=== PATIENT | male | born 1960 | race Caucasian/White ===

== ENCOUNTER 2019-07-18 10:14 | Emergency (ER) | payer MEDICAID ==
[~2019-07-18] VITALS: Ht 170.2 cm; Wt 85.0 kg
[~2019-07-18 10:14] MED LIST: NO HOME MEDS
[2019-07-18 11:05] LABS: BASOPHILS # (AUTO) 0.1 X10'3 (0-0.2); BASOPHILS % (AUTO) 0.7 % (0-1); EOSINOPHILS # (AUTO) 0.1 X10'3 (0-0.9); EOSINOPHILS % (AUTO) 1.1 % (0-6); HEMATOCRIT 54.4 % (42.0-52.0); LYMPHOCYTES # (AUTO) 1.1 X10'3 (1.1-4.8); LYMPHOCYTES % (AUTO) 9.3 % (21-51); MEAN CORPUSCULAR HEMOGLOBIN 32.9 PG (27.0-31.0); MEAN CORPUSCULAR HGB CONC 34.2 g/dL (33.0-36.5); MEAN CORPUSCULAR VOLUME 96.1 FL (78-98); MEAN PLATELET VOLUME 8.6 FL (7.4-10.4); MONOCYTES % (AUTO) 8.1 % (2-12); NEUTROPHILS # (AUTO) 9.6 X10'3 (1.8-7.7); NEUTROPHILS % (AUTO) 80.8 % (42-75); PLATELET COUNT 272 X10'3 (140-440); RED BLOOD COUNT 5.66 X10'6 (4.70-6.10); RED CELL DISTRIBUTION WIDTH 13.3 % (11.5-14.5); WHITE BLOOD COUNT 11.9 X10'3 (4.5-11.0)
[2019-07-18 11:09] LABS: HEMOGLOBIN 18.6 g/dl (14.0-17.9)
[2019-07-18 11:20] LABS: ALANINE AMINOTRANSFERASE 29 U/L (12-78); ALBUMIN 4.1 G/DL (3.4-5.0); ALBUMIN/GLOBULIN RATIO 0.9 (1.1-1.5); ALKALINE PHOSPHATASE 102 IU/L (46-116); ANION GAP 8 (8-16); ASPARTATE AMINO TRANSFERASE 20 U/L (10-37); BILIRUBIN,TOTAL 0.7 MG/DL (0.1-1.0); BLOOD UREA NITROGEN 10 MG/DL (7-18); BUN/CREATININE RATIO 8.3 (5.4-32.0); CALCIUM 9.7 MG/DL (8.5-10.1); CHLORIDE 101 MMOL/L (99-107); GLUCOSE 106 MG/DL (70-104); POTASSIUM 4.4 MMOL/L (3.5-5.1); SODIUM 136 MMOL/L (135-145); TOTAL PROTEIN 8.5 G/DL (6.4-8.2); eGFR 62 ML/MIN
[2019-07-18] MEDS ORDERED: ondansetron/PF 4mg/2ml inj IV ONE (11:25)
[2019-07-18] MEDS ORDERED: morphine 4 MG/ML inj SYRINge IV ONE (11:25)
[2019-07-18] MEDS ORDERED: iohexol 300mg/ml 100ml inj. ONE (12:16)
[2019-07-18 12:32] LABS: CLARITY,URINE CLEAR (Clear); COLOR,URINE YELLOW (Yellow); GLUCOSE, URINE NEGATIVE (Neg); KETONES,URINE NEGATIVE (Neg); LEUKOCYTE ESTERASE ,URINE NEGATIVE (Neg); NITRITES, URINE NEGATIVE (Neg); OCCULT BLOOD,URINE NEGATIVE (Neg); PROTEIN,URINE NEGATIVE (Neg); UROBILINOGEN,URINE 0.2 E.U/dL (0.2-1.0)
[2019-07-18 12:39] LABS: UA COLLECTION TYPE URINAL
--- NOTE | 2019-07-18 12:42 | NUR ---
PT BACK FROM CT. AT BEDSIDE.
[2019-07-18] MEDS ORDERED: fentaNYL/PF 50MCG/1 ML 2ML syringe IV ONE (13:40)
--- NOTE | 2019-07-18 13:50 | NUR ---
DR. GAMING AT BEDSIDE.
--- NOTE | 2019-07-18 13:53 | NUR ---
Fentanyl 100mcg given IV per MD for pain management for hernia reduction. MD in room with patient at this time perfoming intervention.
--- NOTE | 2019-07-18 13:59 | NUR ---
Pt. reports decrease of pain level after procedure carried out by . MD to return at bedside after patient rests for a few minutes.
[2019-07-18 14:57] VITALS: BP 149/109
[2019-07-19] MEDS ORDERED: ALBU8.5H8 INH (20:29)
[2019-07-19] MEDS ORDERED: IBUP-2697 PO (20:29)
== END 2019-07-18 15:05 | disposition home or self-care (01) ==
LOC: ER 10:15
DX: K40.90 Unilateral inguinal hernia, without obstruction or gangrene, not specified as recurrent (principal); J45.909 Unspecified asthma, uncomplicated; F15.90 Other stimulant use, unspecified, uncomplicated; Z60.2 Problems related to living alone
CPT/HCPCS: 36415; 74177; 80053; 81003; 85025; 85610; 96374; 96375; 99284; J2270; J2405; J3010; Q9967

== ENCOUNTER 2019-07-19 09:33 | Observation (INO) | payer MEDICAID ==
[~2019-07-19] VITALS: Ht 170.2 cm; Wt 0.8 kg
[2019-07-19] VITALS (13 sets, daily range): BP systolic 132–176; BP diastolic 80–109
[2019-07-19] MEDS ORDERED: ondansetron/PF 4mg/2ml inj IV ONE ×2 (11:30→15:25)
[2019-07-19] MEDS ORDERED: morphine 4 MG/ML inj SYRINge IV PRN ×3 (11:30→17:45)
[2019-07-19] MEDS ORDERED: normal saline 1000ML IV soln IVB ONE (11:30)
[2019-07-19 12:20] LABS: CLARITY,URINE CLEAR (Clear); COLOR,URINE YELLOW (Yellow); GLUCOSE, URINE NEGATIVE (Neg); KETONES,URINE TRACE mg/dl (Neg); LEUKOCYTE ESTERASE ,URINE NEGATIVE (Neg); NITRITES, URINE NEGATIVE (Neg); OCCULT BLOOD,URINE NEGATIVE (Neg); PROTEIN,URINE NEGATIVE (Neg); UROBILINOGEN,URINE 0.2 E.U/dL (0.2-1.0)
[2019-07-19 12:22] LABS: BASOPHILS # (AUTO) 0.1 X10'3 (0-0.2); BASOPHILS % (AUTO) 0.6 % (0-1); EOSINOPHILS # (AUTO) 0.2 X10'3 (0-0.9); EOSINOPHILS % (AUTO) 1.4 % (0-6); HEMATOCRIT 53.6 % (42.0-52.0); LYMPHOCYTES # (AUTO) 0.9 X10'3 (1.1-4.8); LYMPHOCYTES % (AUTO) 6.6 % (21-51); MEAN CORPUSCULAR HEMOGLOBIN 33.2 PG (27.0-31.0); MEAN CORPUSCULAR HGB CONC 34.4 g/dL (33.0-36.5); MEAN CORPUSCULAR VOLUME 96.5 FL (78-98); MONOCYTES # (AUTO) 1.1 X10'3 (0-0.9); MONOCYTES % (AUTO) 7.5 % (2-12); NEUTROPHILS # (AUTO) 11.8 X10'3 (1.8-7.7); NEUTROPHILS % (AUTO) 83.9 % (42-75); PLATELET COUNT 245 X10'3 (140-440); RED BLOOD COUNT 5.55 X10'6 (4.70-6.10); RED CELL DISTRIBUTION WIDTH 13.2 % (11.5-14.5); WHITE BLOOD COUNT 14.1 X10'3 (4.5-11.0)
[2019-07-19 12:22] LABS: UA COLLECTION TYPE CLN CATCH MIDSTREAM
[2019-07-19 12:25] LABS: HEMOGLOBIN 18.4 g/dl (14.0-17.9)
[2019-07-19 12:34] LABS: ALANINE AMINOTRANSFERASE 28 U/L (12-78); ALBUMIN 3.7 G/DL (3.4-5.0); ALBUMIN/GLOBULIN RATIO 0.9 (1.1-1.5); ALKALINE PHOSPHATASE 96 IU/L (46-116); ANION GAP 5 (8-16); ASPARTATE AMINO TRANSFERASE 17 U/L (10-37); BILIRUBIN,TOTAL 0.6 MG/DL (0.1-1.0); BLOOD UREA NITROGEN 10 MG/DL (7-18); BUN/CREATININE RATIO 10.8 (5.4-32.0); CALCIUM 9.1 MG/DL (8.5-10.1); CHLORIDE 101 MMOL/L (99-107); CREATININE 0.93 MG/DL (0.60-1.10); GLUCOSE 99 MG/DL (70-104); LIPASE 167 U/L (73-393); POTASSIUM 4.6 MMOL/L (3.5-5.1); SODIUM 137 MMOL/L (135-145); TOTAL CARBON DIOXIDE 30.7 MMOL/L (24-32); eGFR 83 ML/MIN
[2019-07-19] MEDS ORDERED: morphine 4 MG/ML inj SYRINge IV ONE (15:25)
[2019-07-19] MEDS ORDERED: ceFAZolin 1000mg inj ONE (16:44)
[2019-07-19] MEDS ORDERED: BUPIVAcaine/PF 2.5 mg/ml (0.25%) 30ml vial ONE (16:45)
[2019-07-19] MEDS ORDERED: midazolam 2 mg/2 ml injection ONE (17:00)
[2019-07-19] MEDS ORDERED: propofol inj 20 ML IV ONE (17:00)
[2019-07-19] MEDS ORDERED: fentaNYL /PF 50mcg/ml 5ml ampule ONE (17:00)
[2019-07-19] MEDS ORDERED: rocuronium 10mg/ml inj IV ONE (17:00)
[2019-07-19] MEDS ORDERED: ringers solution, lacted 1,000 ML IV SCH (17:41)
[2019-07-19] MEDS ORDERED: meperidine/PF 25mg/ml syringe IV PRN ×3 (17:45)
[2019-07-19] MEDS ORDERED: ondansetron/PF 4mg/2ml inj IV PRN (17:45)
[2019-07-19] MEDS ORDERED: proCHLORperazine 10 MG/2 ml inj IV PRN (17:45)
[2019-07-19] MEDS ORDERED: neostigmine methylsulfate 1 MG/ML 10ml vial ONE (17:58)
[2019-07-19] MEDS ORDERED: glycopyrrolate 0.2mg/ml inj ONE (17:58)
[2019-07-19] MEDS ORDERED: sugammadex 200mg/2ml injection IV ONE (18:07)
--- NOTE | 2019-07-19 18:10 | NUR ---
Received from OR via , accompanied by Anesthesiologist DR TAVAREZ and report given by Anesthesiolgist. AWAKENS TO VOICE. VITALS STABLE. DRESSINGS DI. DANA PAIN. ABD SOFT.
[2019-07-19] MEDS ORDERED: HYDROcodone/acetaminophen 10/325mg tab PO PRN ×2 (18:30)
--- NOTE | 2019-07-19 18:50 | NUR ---
Report called to receiving nurse. Transferred via [facility] . Special Issues communicated to receiving nurse. AWAKE AND ORIENTED. VITALS STABLE. DRESSINGS DI.DANA PAIN. TO SURGICAL RM 344A AT THIS TIME.
[2019-07-19] MEDS ORDERED: ALBU8.5H8 INH (20:29)
[2019-07-19] MEDS ORDERED: IBUP-2697 PO (20:29)
[2019-07-19] MEDS: normal saline 1000ml 1,000 ML IV SCH (21:34)
[2019-07-20] VITALS: BP 136/82
[2019-07-20] MEDS: normal saline 1000ml 1,000 ML IV SCH (05:22)
--- NOTE | 2019-07-20 06:18 | NUR ---
Patient in room [facility]. I have received report from Lelo KEE and had the opportunity to ask questions and assume patient care.
--- NOTE | 2019-07-20 06:39 | NUR ---
Problems reprioritized. Patient report given, questions answered & plan of care reviewed with Neto KEE.
[2019-07-20 07:00] VITALS: BP 120/74
[2019-07-20 10:51] VITALS: BP 147/97
--- NOTE | 2019-07-20 12:30 | NUR ---
Discharged patient home, discharge instruction given to patient. Patient verbalized understanding of all instructions made. Peripheral IV catheter removed, tip intact. Patient accompanied by a family member upon discharge
== END 2019-07-20 12:30 | disposition home or self-care (01) ==
LOC: ER 09:33 → SUR 3N 19:13
PROVIDERS: ADMIT Surgery; ATTEND Surgery
DX: K40.30 Unilateral inguinal hernia, with obstruction, without gangrene, not specified as recurrent (principal); J44.9 Chronic obstructive pulmonary disease, unspecified; Z79.899 Other long term (current) drug therapy
CPT/HCPCS: 36415; 49650; 80053; 81003; 83605; 83690; 85025; 87081; 96374; 96375; 96376; 99284; C1727; C1781; C9399; G0378; J0690; J2250; J2270; J2405; J2704; J2710; J3010; J3490; J7030; J7120; A4215; A4314; A4618; A7000

== ENCOUNTER 2021-01-16 12:29 | Emergency (ER) | payer MEDICAID ==
[~2021-01-16] VITALS: Ht 170.2 cm; Wt 79.5 kg
[~2021-01-16 12:29] MED LIST changes: +ALBU8.5H8 INH; +IBUP-2697 PO
[2021-01-16 13:01] LABS: BASOPHILS # (AUTO) 0.1 X10'3 (0-0.2); BASOPHILS % (AUTO) 1.1 % (0-1); EOSINOPHILS # (AUTO) 0.2 X10'3 (0-0.9); EOSINOPHILS % (AUTO) 2.2 % (0-6); HEMATOCRIT 54.9 % (42.0-52.0); LYMPHOCYTES # (AUTO) 1.8 X10'3 (1.1-4.8); LYMPHOCYTES % (AUTO) 17.9 % (21-51); MEAN CORPUSCULAR HEMOGLOBIN 32.8 PG (27.0-31.0); MEAN CORPUSCULAR HGB CONC 33.7 g/dL (33.0-36.5); MEAN CORPUSCULAR VOLUME 97.3 FL (78-98); MEAN PLATELET VOLUME 8.9 FL (7.4-10.4); MONOCYTES % (AUTO) 10.2 % (2-12); NEUTROPHILS # (AUTO) 6.8 X10'3 (1.8-7.7); NEUTROPHILS % (AUTO) 68.6 % (42-75); PLATELET COUNT 232 X10'3 (140-440); RED BLOOD COUNT 5.65 X10'6 (4.70-6.10); RED CELL DISTRIBUTION WIDTH 13.8 % (11.5-14.5); WHITE BLOOD COUNT 9.8 X10'3 (4.5-11.0)
[2021-01-16 13:05] LABS: HEMOGLOBIN 18.5 g/dl (14.0-17.9)
[2021-01-16 13:16] LABS: ALANINE AMINOTRANSFERASE 31 U/L (12-78); ALKALINE PHOSPHATASE 115 IU/L (46-116); ANION GAP 7 (8-16); ASPARTATE AMINO TRANSFERASE 21 U/L (10-37); BILIRUBIN,TOTAL 0.4 MG/DL (0.1-1.0); BLOOD UREA NITROGEN 19 MG/DL (7-18); BUN/CREATININE RATIO 19.2 (5.4-32.0); CALCIUM 9.2 MG/DL (8.5-10.1); CHLORIDE 104 MMOL/L (99-107); CREATININE 0.99 MG/DL (0.60-1.10); GLUCOSE 101 MG/DL (70-104); SODIUM 139 MMOL/L (135-145); TOTAL CARBON DIOXIDE 28.3 MMOL/L (24-32); eGFR 77 ML/MIN
[2021-01-16 13:18] LABS: POTASSIUM 4.5 MMOL/L (3.5-5.1)
[2021-01-16] MEDS ORDERED: ipratropium/albuterol 3ml nebule NEB ONE (13:45)
[2021-01-16] MEDS ORDERED: IPRA3AMP31 IH (14:07)
[2021-01-16 14:17] VITALS: BP 158/122
== END 2021-01-16 14:11 | disposition home or self-care (01) ==
LOC: ER 12:30
DX: J44.9 Chronic obstructive pulmonary disease, unspecified (principal); F15.90 Other stimulant use, unspecified, uncomplicated; Z60.2 Problems related to living alone; Z79.899 Other long term (current) drug therapy
CPT/HCPCS: 36415; 71046; 80053; 83880; 84484; 85025; 93005; 94640; 94760; 99285

== ENCOUNTER 2021-12-21 16:10 | Inpatient (IN) | payer MEDICAID ==
[~2021-12-21] VITALS: Ht 170.2 cm; Wt 95.0 kg
[~2021-12-21 16:10] MED LIST changes: +ALBU8.5H17 INH; -ALBU8.5H8 INH; +IPRA3AMP31 IH
[2021-12-21 17:13] LABS: BASOPHILS # (AUTO) 0.1 X10'3 (0-0.2); BASOPHILS % (AUTO) 0.5 % (0-1); EOSINOPHILS % (AUTO) 0 % (0-6); HEMATOCRIT 56.4 % (42.0-52.0); LYMPHOCYTES # (AUTO) 0.6 X10'3 (1.1-4.8); LYMPHOCYTES % (AUTO) 4.3 % (21-51); MEAN CORPUSCULAR HEMOGLOBIN 31.9 PG (27.0-31.0); MEAN CORPUSCULAR HGB CONC 33.4 g/dL (33.0-36.5); MEAN CORPUSCULAR VOLUME 95.7 FL (78-98); MEAN PLATELET VOLUME 8.9 FL (7.4-10.4); MONOCYTES # (AUTO) 1.3 X10'3 (0-0.9); NEUTROPHILS # (AUTO) 12.5 X10'3 (1.8-7.7); NEUTROPHILS % (AUTO) 86.2 % (42-75); PLATELET COUNT 211 X10'3 (140-440); RED BLOOD COUNT 5.89 X10'6 (4.70-6.10); RED CELL DISTRIBUTION WIDTH 13.1 % (11.5-14.5); WHITE BLOOD COUNT 14.5 X10'3 (4.5-11.0)
[2021-12-21] MEDS ORDERED: methylPREDNISolone sod succ 125mg/2ml vial IV ONE (17:15)
[2021-12-21] MEDS ORDERED: CefTRIAXone/D5W-Rocephin 1gm 50 ML IV ONE (17:15)
[2021-12-21] MEDS ORDERED: ipratropium 0.5 MG/2.5ML nebule IH ONE (17:15)
[2021-12-21] MEDS ORDERED: normal saline 1000ML IV soln IVB ONE (17:15)
[2021-12-21] MEDS ORDERED: albuterol 2.5 MG/3 ML nebule CONTNEB PRN (17:15)
[2021-12-21 17:17] LABS: HEMOGLOBIN 18.8 g/dl (14.0-17.9)
--- NOTE | 2021-12-21 17:17 | NUR ---
CRITICAL VALUE: HGB 18.8, HCT 56.4. NOTIFIED
[2021-12-21] MEDS ORDERED: cefTRIAXone 1g/NS 100ml IVPB 100 ML IV ONE ×2 (17:19→17:20)
[2021-12-21 17:24] LABS: ALANINE AMINOTRANSFERASE 33 U/L (12-78); ALBUMIN/GLOBULIN RATIO 0.9 (1.1-1.5); ALKALINE PHOSPHATASE 92 IU/L (46-116); ANION GAP 10 (8-16); ASPARTATE AMINO TRANSFERASE 29 U/L (10-37); BILIRUBIN,TOTAL 0.4 MG/DL (0.1-1.0); BLOOD UREA NITROGEN 16 MG/DL (7-18); BUN/CREATININE RATIO 14.7 (5.4-32.0); CALCIUM 9.3 MG/DL (8.5-10.1); CHLORIDE 98 MMOL/L (99-107); CREATININE 1.09 MG/DL (0.60-1.10); GLUCOSE 111 MG/DL (70-104); POTASSIUM 4.5 MMOL/L (3.5-5.1); SODIUM 135 MMOL/L (135-145); TOTAL CARBON DIOXIDE 27.4 MMOL/L (24-32); TOTAL PROTEIN 8.5 G/DL (6.4-8.2); eGFR 69 ML/MIN
[2021-12-21 17:29] LABS: LIPASE 58 U/L (73-393)
[2021-12-21 17:48] LABS: ABG BASE EXCESS 0.7 mmol/L (-2.0-2.0); ABG HCO3 27.1 mmol/L (22.0-26.0); ABG OXYGEN SATURATION 95.3 % (94-97); ABG PCO2 (T) 49.4 mmHg (35.0-48.0); ABG PO2 (T) 76.8 mmHg (75.0-100.0); ALLEN'S TEST POSITIVE; FCOHb 1.1 % (0.0-3.9); FLOW 8 L/min; FMetHb 0.2 % (0.0-1.5); FO2Hb 94.1 % (94-97); PATIENT TEMPERATURE 36.9; TOTAL HEMOGLOBIN 17.5 G/dl (14.0-18.0)
--- NOTE | 2021-12-21 18:55 | NUR ---
RT IN ROOM. PT ON 3L OF O2 NC. PT NORMALLY SATS IN THE HIGH 80S. HE USUALLY USES 2L OF O2 NC DURING THE DAY AND 4L OF 02 DURING THE NIGHT
[2021-12-21] MEDS ORDERED: morphine 2 MG/ML inj. syringe IV PRN ×2 (19:55)
[2021-12-21] MEDS ORDERED: diphenhydrAMINE 25mg capsule PO PRN (19:55)
[2021-12-21] MEDS ORDERED: HYDROcodone/acetaminophen 5mg/325mg tablet PO PRN (19:55)
[2021-12-21] MEDS ORDERED: ondansetron 4mg rapidly disintigrating tab PO PRN (19:55)
[2021-12-21] MEDS ORDERED: diphenhydrAMINE 50 mg/ml inj IV PRN (19:55)
[2021-12-21] MEDS ORDERED: ondansetron/PF 4mg/2ml inj IV PRN (19:55)
[2021-12-21] MEDS ORDERED: mag hydrox/Alum hydrox/simeth 30ml oral suspension PO PRN (19:55)
[2021-12-21] MEDS ORDERED: acetaminophen 650mg rectal suppository RC PRN (19:55)
[2021-12-21] MEDS ORDERED: magnesium hydroxide 30ml (MOM) UD suspension PO PRN (19:55)
[2021-12-21] MEDS ORDERED: bisacodyl 10mg suppository rectal RC PRN (19:55)
[2021-12-21] MEDS ORDERED: acetaminophen 325mg tablet PO PRN ×2 (19:55)
[2021-12-21] MEDS ORDERED: HYDROcodone/acetaminophen 10/325mg tab PO PRN (19:55)
[2021-12-21] MEDS: docusate sod 100mg capsule PO SCH (20:00)
[2021-12-21 20:23] LABS: APTT 36 SECONDS (22-32)
[2021-12-21] MEDS ORDERED: FLUT1BLS16 INH (20:30)
[2021-12-21] MEDS ORDERED: ALBU8HFA IH (20:30)
[2021-12-21] MEDS ORDERED: BUPR-72 PO (20:30)
[2021-12-21] MEDS ORDERED: MONT-40 PO (20:30)
[2021-12-21] MEDS ORDERED: LISI1TAB51 PO (20:30)
[2021-12-21] MEDS ORDERED: VARE1TAB24 PO (20:30)
[2021-12-21] MEDS ORDERED: PRED20TA PO (20:30)
[2021-12-21 20:40] LABS: CREATINE KINASE 99 U/L (39-308); MAGNESIUM 2.2 MG/DL (1.5-2.4)
[2021-12-21 20:49] LABS: HEMOGLOBIN A1C 6.4 % (4.5-6.2)
[2021-12-21] MEDS: normal saline 1000ml 1,000 ML IV SCH ×2 (20:53→23:15)
[2021-12-21] MEDS ORDERED: temazepam 15mg capsule PO PRN (21:00)
[2021-12-21 21:35] VITALS: BP 116/71
[2021-12-21 22:00] VITALS: BP 140/70
[2021-12-21] MEDS: furosemide 20 MG/2 ML vial IV SCH (23:13)
[2021-12-22 02:00] VITALS: BP 142/94
[2021-12-22 05:46] LABS: BASOPHILS % (AUTO) 0.1 % (0-1); EOSINOPHILS % (AUTO) 0.1 % (0-6); HEMATOCRIT 49.8 % (42.0-52.0); HEMOGLOBIN 16.5 g/dl (14.0-17.9); LYMPHOCYTES # (AUTO) 0.4 X10'3 (1.1-4.8); LYMPHOCYTES % (AUTO) 3.2 % (21-51); MEAN CORPUSCULAR HEMOGLOBIN 31.7 PG (27.0-31.0); MEAN CORPUSCULAR HGB CONC 33.1 g/dL (33.0-36.5); MEAN CORPUSCULAR VOLUME 95.8 FL (78-98); MEAN PLATELET VOLUME 8.8 FL (7.4-10.4); MONOCYTES # (AUTO) 0.4 X10'3 (0-0.9); MONOCYTES % (AUTO) 2.9 % (2-12); NEUTROPHILS # (AUTO) 11.8 X10'3 (1.8-7.7); NEUTROPHILS % (AUTO) 93.7 % (42-75); PLATELET COUNT 178 X10'3 (140-440); WHITE BLOOD COUNT 12.6 X10'3 (4.5-11.0)
[2021-12-22 06:00] VITALS: BP 136/93
[2021-12-22 06:00] LABS: ALANINE AMINOTRANSFERASE 25 U/L (12-78); ALBUMIN 2.9 G/DL (3.4-5.0); ALBUMIN/GLOBULIN RATIO 0.8 (1.1-1.5); ALKALINE PHOSPHATASE 69 IU/L (46-116); ANION GAP 8 (8-16); ASPARTATE AMINO TRANSFERASE 20 U/L (10-37); BILIRUBIN,TOTAL 0.2 MG/DL (0.1-1.0); BLOOD UREA NITROGEN 24 MG/DL (7-18); CALCIUM 8.3 MG/DL (8.5-10.1); CHLORIDE 103 MMOL/L (99-107); CREATININE 0.89 MG/DL (0.60-1.10); GLUCOSE 188 MG/DL (70-104); POTASSIUM 4.5 MMOL/L (3.5-5.1); SODIUM 136 MMOL/L (135-145); TOTAL CARBON DIOXIDE 25.4 MMOL/L (24-32); TOTAL PROTEIN 6.7 G/DL (6.4-8.2); eGFR 87 ML/MIN
[2021-12-22 06:04] LABS: CHOL/HDL RATIO 2.8 (0.00-4.99); CHOLESTEROL 111 MG/DL (0-200); HDL CHOLESTEROL 39 MG/DL (35-60); LDL CHOLESTEROL 59 MG/DL (50-100); TRIGLYCERIDES 56 MG/DL (20-135)
[2021-12-22] MEDS: ipratropium/albuterol 3ml nebule NEB PRN ×2 (07:13→12:25)
[2021-12-22] MEDS ORDERED: CefTRIAXone/D5W-Rocephin 1gm 50 ML IV SCH (08:00)
[2021-12-22] MEDS ORDERED: methylPREDNISolone sod succ 125mg/2ml vial IV SCH (08:00)
[2021-12-22] MEDS ORDERED: potassium CL 10mEq/100ml bag 100 ML IV PRN (09:10)
[2021-12-22] MEDS ORDERED: potassium Cl 20 mEq SR tablet PO PRN ×2 (09:10)
[2021-12-22] MEDS ORDERED: magnesium 4gm in 100ml NS 100 ML IV PRN (09:10)
[2021-12-22] MEDS ORDERED: magnesium Cl slow-release 64mg tablet PO PRN (09:10)
[2021-12-22] MEDS: HYDROchlorothiazide 12.5mg capsule PO SCH ×2 (09:12→09:13)
[2021-12-22] MEDS: docusate sod 100mg capsule PO SCH ×2 (09:13→20:00)
[2021-12-22] MEDS: furosemide 20 MG/2 ML vial IV SCH (09:15)
[2021-12-22] MEDS: methylPREDNISolone sod succ 125mg/2ml vial IV SCH (09:15)
[2021-12-22] MEDS: heparin, porcine 5000 units/ml vial SQ SCH ×3 (09:16→15:47)
[2021-12-22] MEDS: montelukast 10mg tablet PO SCH (09:17)
[2021-12-22] MEDS: lisinopril 20mg tablet PO SCH (09:17)
[2021-12-22] MEDS: pantoprazole 40mg Tablet.DR PO SCH (09:17)
[2021-12-22] MEDS: buPROPion SR 150mg tablet PO SCH ×2 (09:18→20:21)
[2021-12-22] MEDS: azithromycin/NS 500mg/250ml 250 ML IV SCH (09:32)
[2021-12-22 10:00] VITALS: BP 146/108
--- NOTE | 2021-12-22 10:06 | NUR ---
PAGED RT... PT IN 312 REQUESTING BREATHING TREATMENT, STATES HES HAD A COUPLE OF "ASTHMA ATTACKS"
[2021-12-22] MEDS: ipratropium/albuterol 3ml nebule NEB SCH ×4 (10:19→23:02)
[2021-12-22] MEDS: normal saline 1000ml 1,000 ML IV SCH (11:10)
[2021-12-22] MEDS: varenicline tartrate 1mg tablet PO SCH (11:12)
[2021-12-22 14:00] VITALS: BP 101/66
[2021-12-22] MEDS ORDERED: albuterol 2.5 MG/3 ML nebule NEB PRN (14:35)
[2021-12-22] MEDS ORDERED: iohexol 350MG/ML 100ml bottle IV ONE (17:13)
--- NOTE | 2021-12-22 18:32 | NUR ---
Patient in room [facility] 312. I have received report from Tad KEE and had the opportunity to ask questions and assume patient care.
[2021-12-22 18:33] VITALS: BP 133/79
[2021-12-22] MEDS: K and/or MAG REPLACEMENT MC SCH (19:51)
[2021-12-22 21:00] VITALS: BP 132/71
[2021-12-23] VITALS: BP 119/79
[2021-12-23] MEDS: heparin, porcine 5000 units/ml vial SQ SCH ×3 (00:56→16:00)
[2021-12-23] MEDS: methylPREDNISolone sod succ 125mg/2ml vial IV SCH ×3 (00:56→16:00)
[2021-12-23] MEDS: ipratropium/albuterol 3ml nebule NEB SCH ×6 (02:34→23:12)
[2021-12-23 03:00] VITALS: BP 130/109
[2021-12-23 06:02] LABS: BASOPHILS % (AUTO) 0.1 % (0-1); EOSINOPHILS % (AUTO) 0 % (0-6); HEMATOCRIT 48.3 % (42.0-52.0); HEMOGLOBIN 16.1 g/dl (14.0-17.9); LYMPHOCYTES # (AUTO) 0.5 X10'3 (1.1-4.8); LYMPHOCYTES % (AUTO) 1.6 % (21-51); MEAN CORPUSCULAR HEMOGLOBIN 31.4 PG (27.0-31.0); MEAN CORPUSCULAR HGB CONC 33.3 g/dL (33.0-36.5); MEAN CORPUSCULAR VOLUME 94.5 FL (78-98); MEAN PLATELET VOLUME 9.4 FL (7.4-10.4); MONOCYTES % (AUTO) 3.3 % (2-12); NEUTROPHILS # (AUTO) 29.2 X10'3 (1.8-7.7); PLATELET COUNT 216 X10'3 (140-440); RED BLOOD COUNT 5.12 X10'6 (4.70-6.10); RED CELL DISTRIBUTION WIDTH 13.3 % (11.5-14.5)
[2021-12-23 06:10] LABS: WHITE BLOOD COUNT 30.7 X10'3 (4.5-11.0)
--- NOTE | 2021-12-23 06:20 | NUR ---
Problems reprioritized. Patient report given, questions answered & plan of care reviewed with Thanh KEE.
[2021-12-23 06:25] LABS: ALANINE AMINOTRANSFERASE 26 U/L (12-78); ALBUMIN/GLOBULIN RATIO 0.8 (1.1-1.5); ALKALINE PHOSPHATASE 72 IU/L (46-116); ANION GAP 9 (8-16); ASPARTATE AMINO TRANSFERASE 22 U/L (10-37); BILIRUBIN,TOTAL 0.2 MG/DL (0.1-1.0); BLOOD UREA NITROGEN 28 MG/DL (7-18); BUN/CREATININE RATIO 28.9 (5.4-32.0); CHLORIDE 103 MMOL/L (99-107); CREATININE 0.97 MG/DL (0.60-1.10); GLUCOSE 157 MG/DL (70-104); MAGNESIUM 2.2 MG/DL (1.5-2.4); PHOSPHORUS 2.7 MG/DL (2.3-4.5); POTASSIUM 4.7 MMOL/L (3.5-5.1); SODIUM 140 MMOL/L (135-145); TOTAL CARBON DIOXIDE 28.1 MMOL/L (24-32); TOTAL PROTEIN 6.8 G/DL (6.4-8.2); eGFR 79 ML/MIN
[2021-12-23 06:55] LABS: PLATELET ESTIMATE NORMAL; TOTAL CELLS COUNTED 100
[2021-12-23 07:30] VITALS: BP 125/77
[2021-12-23] MEDS: K and/or MAG REPLACEMENT MC SCH ×2 (08:00→19:19)
[2021-12-23] MEDS: azithromycin/NS 500mg/250ml 250 ML IV SCH (08:00)
[2021-12-23] MEDS: furosemide 20 MG/2 ML vial IV SCH (09:10)
[2021-12-23] MEDS: lisinopril 20mg tablet PO SCH (09:11)
[2021-12-23] MEDS: montelukast 10mg tablet PO SCH (09:11)
[2021-12-23] MEDS: HYDROchlorothiazide 12.5mg capsule PO SCH (09:11)
[2021-12-23] MEDS: buPROPion SR 150mg tablet PO SCH ×2 (09:11→20:30)
[2021-12-23] MEDS: docusate sod 100mg capsule PO SCH ×2 (09:12→20:30)
[2021-12-23] MEDS: varenicline tartrate 1mg tablet PO SCH (09:12)
[2021-12-23] MEDS: cefTRIAXone 1g/NS 100ml IVPB 100 ML IV SCH (09:12)
[2021-12-23] MEDS: pantoprazole 40mg Tablet.DR PO SCH (09:12)
[2021-12-23 18:00] VITALS: BP 127/80
[2021-12-23] MEDS: normal saline 1000ml 1,000 ML IV SCH (18:39)
[2021-12-23 22:00] VITALS: BP 116/78
[2021-12-24] MEDS: methylPREDNISolone sod succ 125mg/2ml vial IV SCH ×2 (00:39→07:53)
[2021-12-24] MEDS: heparin, porcine 5000 units/ml vial SQ SCH ×2 (00:40→07:53)
[2021-12-24 02:00] VITALS: BP 122/68
[2021-12-24] MEDS: ipratropium/albuterol 3ml nebule NEB SCH ×2 (02:50→07:43)
[2021-12-24 05:37] LABS: BASOPHILS % (AUTO) 0.1 % (0-1); EOSINOPHILS % (AUTO) 0 % (0-6); HEMATOCRIT 45.9 % (42.0-52.0); HEMOGLOBIN 15.1 g/dl (14.0-17.9); LYMPHOCYTES # (AUTO) 0.5 X10'3 (1.1-4.8); LYMPHOCYTES % (AUTO) 1.9 % (21-51); MEAN CORPUSCULAR HEMOGLOBIN 31.6 PG (27.0-31.0); MEAN CORPUSCULAR VOLUME 95.6 FL (78-98); MEAN PLATELET VOLUME 9.1 FL (7.4-10.4); MONOCYTES # (AUTO) 0.6 X10'3 (0-0.9); MONOCYTES % (AUTO) 2.1 % (2-12); NEUTROPHILS % (AUTO) 95.9 % (42-75); PLATELET COUNT 228 X10'3 (140-440); RED CELL DISTRIBUTION WIDTH 12.8 % (11.5-14.5)
[2021-12-24 05:55] LABS: WHITE BLOOD COUNT 28.2 X10'3 (4.5-11.0)
[2021-12-24 06:00] VITALS: BP 123/81
[2021-12-24 06:07] LABS: ALANINE AMINOTRANSFERASE 91 U/L (12-78); ALBUMIN 2.8 G/DL (3.4-5.0); ALBUMIN/GLOBULIN RATIO 0.8 (1.1-1.5); ALKALINE PHOSPHATASE 70 IU/L (46-116); ANION GAP 11 (8-16); ASPARTATE AMINO TRANSFERASE 55 U/L (10-37); BILIRUBIN,TOTAL 0.2 MG/DL (0.1-1.0); BLOOD UREA NITROGEN 29 MG/DL (7-18); CALCIUM 9.1 MG/DL (8.5-10.1); CHLORIDE 104 MMOL/L (99-107); GLUCOSE 176 MG/DL (70-104); MAGNESIUM 2.2 MG/DL (1.5-2.4); PHOSPHORUS 3.2 MG/DL (2.3-4.5); POTASSIUM 4.1 MMOL/L (3.5-5.1); SODIUM 143 MMOL/L (135-145); TOTAL CARBON DIOXIDE 28.3 MMOL/L (24-32); TOTAL PROTEIN 6.4 G/DL (6.4-8.2); eGFR 76 ML/MIN
[2021-12-24 06:57] LABS: TOTAL CELLS COUNTED 100
[2021-12-24 06:58] LABS: PLATELET ESTIMATE NORMAL
[2021-12-24] MEDS: pantoprazole 40mg Tablet.DR PO SCH (07:52)
[2021-12-24] MEDS: furosemide 20 MG/2 ML vial IV SCH (07:52)
[2021-12-24 07:53] VITALS: BP_SYST 123
[2021-12-24] MEDS: cefTRIAXone 1g/NS 100ml IVPB 100 ML IV SCH (07:53)
[2021-12-24] MEDS: docusate sod 100mg capsule PO SCH (07:53)
[2021-12-24] MEDS: lisinopril 20mg tablet PO SCH (07:53)
[2021-12-24] MEDS: montelukast 10mg tablet PO SCH (07:53)
[2021-12-24] MEDS: varenicline tartrate 1mg tablet PO SCH (07:53)
[2021-12-24] MEDS: buPROPion SR 150mg tablet PO SCH (07:53)
[2021-12-24] MEDS: azithromycin/NS 500mg/250ml 250 ML IV SCH (08:00)
[2021-12-24] MEDS ORDERED: AZIT500T9 PO (09:12)
[2021-12-24] MEDS ORDERED: PRED10TA23 PO (09:12)
[2021-12-24] MEDS ORDERED: CEFD300C3 PO (09:12)
--- NOTE | 2021-12-24 10:15 | NUR ---
Discharge instructions discussed with patient. All questions answered. Pt states that he understands. Pt states he will make all his follow up appointments and last picker his medications. Pt leaving unit in wheelchair and on oxygen.
== END 2021-12-24 10:35 | disposition home or self-care (01) | DRG 139 ==
LOC: ER 16:12 → ED HOLD 20:05 → MED 3N 21:21
PROVIDERS: ADMIT Family Medicine; ATTEND Family Medicine
PROC: B32T1ZZ Computerized Tomography (CT Scan) of Left Pulmonary Artery using Low Osmolar Contrast (ICD-10-PCS; principal; 2021-12-22)
PROC: B3201ZZ Computerized Tomography (CT Scan) of Thoracic Aorta using Low Osmolar Contrast (ICD-10-PCS; 2021-12-22)
PROC: B32S1ZZ Computerized Tomography (CT Scan) of Right Pulmonary Artery using Low Osmolar Contrast (ICD-10-PCS; 2021-12-22)
DX: J18.9 Pneumonia, unspecified organism (principal); J96.21 Acute and chronic respiratory failure with hypoxia; I50.33 Acute on chronic diastolic (congestive) heart failure; Z20.822 Contact with and (suspected) exposure to COVID-19; J44.0 Chronic obstructive pulmonary disease with (acute) lower respiratory infection; J44.1 Chronic obstructive pulmonary disease with (acute) exacerbation; F15.90 Other stimulant use, unspecified, uncomplicated; I11.0 Hypertensive heart disease with heart failure; F17.210 Nicotine dependence, cigarettes, uncomplicated; Z99.81 Dependence on supplemental oxygen; Z79.899 Other long term (current) drug therapy; Z71.6 Tobacco abuse counseling
CPT/HCPCS: 36415; 36600; 71045; 71275; 80053; 80061; 82550; 82803; 83036; 83605; 83690; 83735; 83880; 84100; 84145; 84443; 84484; 85007; 85018; 85025; 85379; 85610; 85730; 87040; 87081; 87635; 93005; 93306; 94640; 94760; 99291; A7015; C9803; G0378; J0456; J0696; J1644; J1940; J2930; J7030; Q9967

== ENCOUNTER 2023-02-23 05:43 | Inpatient (IN) | payer MEDICAID ==
[~2023-02-23] VITALS: Ht 170.2 cm; Wt 86.4 kg
[~2023-02-23 05:43] MED LIST changes: -ALBU8.5H17 INH; +ALBU8HFA IH; +AZIT500T9 PO; +BUPR-72 PO; +FLUT1BLS16 INH; -IBUP-2697 PO; -IPRA3AMP31 IH; +LISI1TAB51 PO; +MONT-40 PO; -NO HOME MEDS; +VARE1TAB24 PO
[2023-02-23] MEDS ORDERED: ipratropium/albuterol 3ml nebule NEB STA (05:46)
[2023-02-23] MEDS ORDERED: magnesium 2GM in 50ml NS 50 ML IV ONE (05:55)
[2023-02-23] MEDS ORDERED: CefTRIAXone 2gm/D5W 50ml BAG 50 ML IV ONE (05:55)
[2023-02-23] MEDS ORDERED: albuterol 2.5 MG/3 ML nebule CONTNEB ONE (05:55)
[2023-02-23] MEDS ORDERED: normal saline 1000ML IV soln IVB ONE (05:55)
[2023-02-23] MEDS ORDERED: methylPREDNISolone sod succ 125mg/2ml vial IV ONE (05:55)
[2023-02-23 06:53] LABS: BASOPHILS # (AUTO) 0.2 X10'3 (0-0.2); BASOPHILS % (AUTO) 1.3 % (0-1); EOSINOPHILS # (AUTO) 0.1 X10'3 (0-0.9); EOSINOPHILS % (AUTO) 0.6 % (0-6); HEMOGLOBIN 17.7 g/dl (14.0-17.9); LYMPHOCYTES # (AUTO) 1.3 X10'3 (1.1-4.8); LYMPHOCYTES % (AUTO) 9.4 % (21-51); MEAN CORPUSCULAR HEMOGLOBIN 32.2 PG (27.0-31.0); MEAN CORPUSCULAR HGB CONC 33.5 g/dL (33.0-36.5); MEAN CORPUSCULAR VOLUME 96.2 FL (78-98); MEAN PLATELET VOLUME 8.3 FL (7.4-10.4); MONOCYTES # (AUTO) 1.1 X10'3 (0-0.9); MONOCYTES % (AUTO) 7.7 % (2-12); NEUTROPHILS # (AUTO) 11.1 X10'3 (1.8-7.7); PLATELET COUNT 291 X10'3 (140-440); RED CELL DISTRIBUTION WIDTH 13.8 % (11.5-14.5); WHITE BLOOD COUNT 13.8 X10'3 (4.5-11.0)
[2023-02-23 07:16] LABS: ALANINE AMINOTRANSFERASE 32 U/L (12-78); ALBUMIN 3.9 G/DL (3.4-5.0); ALBUMIN/GLOBULIN RATIO 1.1 (1.1-1.5); ALKALINE PHOSPHATASE 93 IU/L (46-116); ANION GAP 7 (8-16); ASPARTATE AMINO TRANSFERASE 25 U/L (10-37); BILIRUBIN,TOTAL 0.3 MG/DL (0.1-1.0); BLOOD UREA NITROGEN 18 MG/DL (7-18); BUN/CREATININE RATIO 14.2 (10.0-20.0); CALCIUM 9.6 MG/DL (8.5-10.1); CHLORIDE 102 MMOL/L (99-107); CREATININE 1.27 MG/DL (0.60-1.10); GLUCOSE 129 MG/DL (70-104); POTASSIUM 4.7 MMOL/L (3.5-5.1); SODIUM 137 MMOL/L (135-145); TOTAL CARBON DIOXIDE 28.1 MMOL/L (24-32); TOTAL PROTEIN 7.4 G/DL (6.4-8.2); eGFR 57 ML/MIN
[2023-02-23] MEDS ORDERED: albuterol 2.5 MG/3 ML nebule NEB ONE (07:25)
[2023-02-23] MEDS ORDERED: ipratropium/albuterol 3ml nebule NEB ONE (07:25)
--- NOTE | 2023-02-23 07:57 | NUR ---
pt refused ABG. Pt anxious and does not like needles. PT currently on cont neb, will discuss need for ABG after pt is done with treatment.
[2023-02-23] MEDS ORDERED: acetaminophen 325mg tablet PO PRN ×2 (08:00)
[2023-02-23] MEDS ORDERED: morphine 2 MG/ML inj. syringe IV PRN ×2 (08:00)
[2023-02-23] MEDS ORDERED: HYDROcodone/acetaminophen 10/325mg tab PO PRN (08:00)
[2023-02-23] MEDS ORDERED: HYDROcodone/acetaminophen 5mg/325mg tablet PO PRN (08:00)
[2023-02-23] MEDS ORDERED: docusate sod 100mg capsule PO SCH (08:00)
[2023-02-23] MEDS ORDERED: ondansetron/PF 4mg/2ml inj IV PRN (08:00)
[2023-02-23] MEDS ORDERED: mag hydrox/Alum hydrox/simeth 30ml oral suspension PO PRN (08:00)
[2023-02-23] MEDS ORDERED: magnesium hydroxide 30ml (MOM) UD suspension PO PRN (08:00)
[2023-02-23] MEDS ORDERED: enoxaparin 40mg/0.4ml syringe SUBCUT SCH (08:00)
[2023-02-23 10:15] VITALS: BP 127/78
[2023-02-23] MEDS ORDERED: PRED20TA PO (11:01)
[2023-02-23] MEDS ORDERED: ALBU2.5V13 NEB (11:01)
[2023-02-23] MEDS ORDERED: CEPH-585 PO (11:01)
--- NOTE | 2023-02-23 11:07 | NUR ---
DR SANTANA AND DR PINEDO SPOKE WITH PATIENT REGARDING DC FROM ED. GIRLFRIEND AT BEDSIDE.
== END 2023-02-23 11:07 | disposition left against medical advice (07) | DRG 140 ==
LOC: ER 05:43 → ED HOLD 08:02
PROVIDERS: ADMIT Internal Medicine; ATTEND Internal Medicine
DX: J44.1 Chronic obstructive pulmonary disease with (acute) exacerbation (principal); J96.21 Acute and chronic respiratory failure with hypoxia; F17.210 Nicotine dependence, cigarettes, uncomplicated; Z53.29 Procedure and treatment not carried out because of patient's decision for other reasons; F15.90 Other stimulant use, unspecified, uncomplicated; Z60.2 Problems related to living alone
CPT/HCPCS: 36415; 71045; 80053; 83605; 83880; 84145; 84484; 85025; 87040; 94640; 94760; 99285; A4615; A7015; G0378; J0696; J1650; J2930; J3475; J7030